=== PATIENT | male | born 1960 | race Caucasian/White ===

== ENCOUNTER 2016-07-28 11:25 | Emergency (ER) | payer BC ==
--- NOTE | 2016-07-28 11:51 | ER Document Report ---
ED Medical Screen (RME) - General Mode of Arrival: Ambulatory Information source: Patient <VIRGILIO EATON - Last Filed: 07/28/16 13:18> <PRAVEEN THORNTON - Last Filed: 07/28/16 14:04> - General Chief Complaint: Cough Stated Complaint: SHORTNESS OF BREATH,COUGH Time Seen by Provider: 07/28/16 11:45 Notes: Patient is a 56-year-old male that presents today with complaints of a cough of a 2 week duration. Patient states he was sent here from urgent care. Patient states he is initially was treated by them 2 weeks ago and put on a Z-Long, had a follow-up appointment today and his chest x-ray worsened". Patient states he has had mild shortness of breath which is exacerbated at night. Patient states it hurts to breathe on the left-hand side. Patient does have an extensive smoking history. (VIRGILIO EATON) - Related Data Allergies/Adverse Reactions: No Known Allergies Allergy (Unverified 01/30/12 16:33) Past Medical History - Past Medical History Cardiac Medical History: Reports: Hx Hypertension - no meds, high BPx1 Denies: Hx Coronary Artery Disease, Hx Heart Attack Pulmonary Medical History: Denies: Hx Asthma, Hx Bronchitis, Hx COPD, Hx Pneumonia Neurological Medical History: Denies: Hx Cerebrovascular Accident, Hx Seizures Renal/ Medical History: Denies: Hx Peritoneal Dialysis Musculoskeltal Medical History: Denies Hx Arthritis Past Surgical History: Denies: Hx Pacemaker - Immunizations Hx Diphtheria, Pertussis, Tetanus Vaccination: Yes <VIRGILIO EATON - Last Filed: 07/28/16 13:18> Review of Systems - Review of Systems Respiratory: See HPI, Cough, Hurts to breathe, Short of breath <VIRGILIO EATON - Last Filed: 07/28/16 13:18> Physical Exam - Respiratory Respiratory status: No respiratory distress Chest status: Nontender Breath sounds: Normal <VIRGILIO EATON - Last Filed: 07/28/16 13:18> Course - Laboratory Result Diagrams: 07/28/16 12:15 07/28/16 12:15 <VIRGILIO EATON - Last Filed: 07/28/16 13:18> - Laboratory Result Diagrams: 07/28/16 12:15 07/28/16 12:15 <PRAVEEN THORNTON - Last Filed: 07/28/16 14:04> - Re-evaluation Re-evalutation: 07/28/16 14:04 I personally performed the services described in the documentation, reviewed and edited the documentation which was dictated to the scribe in my presence, and it accurately records my words and actions. (PRAVEEN THORNTON) - Vital Signs Vital signs: Temp Pulse Resp BP Pulse Ox 98.6 F 77 16 153/86 H 97 07/28/16 11:36 07/28/16 11:36 07/28/16 11:36 07/28/16 11:36 07/28/16 11:36 - Laboratory Laboratory results interpreted by me: 07/28/16 07/28/16 07/28/16 12:15 12:15 12:15 RBC 4.25 L APTT 39.2 H Direct Bilirubin 0.5 H ALT 78 H Albumin 3.4 L Scribe Documentation - Scribe Written by Marcye:: Tanner Mendes, 07/28/2016 1216 acting as scribe for :: Guanaco <VIRGILIO EATON - Last Filed: 07/28/16 13:18>
[2016-07-28] MEDS ORDERED: MORPHINE SULFATE 10 MG/ML INJ IV ONE (11:53)
[2016-07-28] MEDS ORDERED: ONDANSETRON HCL INJ/PF 4 MG/2 ML SDV IV ONE (11:53)
[2016-07-28 12:41] LABS: ABSOLUTE EOSINOPHILS # (AUTO) 0.1 10^3/uL (0.0-0.6); ABSOLUTE LYMPHOCYTES (AUTO) 1.2 10^3/uL (0.5-4.7); ABSOLUTE MONOCYTES (AUTO) 0.7 10^3/uL (0.1-1.4); BASOPHILS % (AUTO) 0.5 % (0-2); EOSINOPHILS % (AUTO) 1.7 % (0-6); HEMATOCRIT 41.4 % (37.9-51.0); HEMOGLOBIN 14.2 g/dL (13.5-17.0); HGB HCT DIFFERENCE 1.2; LYMPHOCYTES % (AUTO) 15.1 % (13-45); MEAN CORPUSCULAR HEMOGLOBIN 33.3 pg (27.0-33.4); MEAN CORPUSCULAR HGB CONC 34.2 g/dL (32.0-36.0); MEAN CORPUSCULAR VOLUME 97 fl (80-97); MONOCYTES % (AUTO) 8.1 % (3-13); RED BLOOD COUNT 4.25 10^6/uL (4.35-5.55); RED CELL DISTRIBUTION WIDTH 13.3 % (11.5-14.0); SEGMENTED NEUTROPHILS % (AUTO) 74.6 % (42-78); WHITE BLOOD COUNT 8.1 10^3/uL (4.0-10.5)
[2016-07-28 12:47] LABS: PARTIAL THROMBOPLASTIN TIME 39.2 SEC (23.5-35.8); PROTHROMBIN TIME 13.7 SEC (11.4-15.4)
[2016-07-28 13:11] LABS: ALANINE AMINOTRANSFERASE 78 U/L (21-72); ALBUMIN 3.4 g/dL (3.5-5.0); ALKALINE PHOSPHATASE 118 U/L (38-126); ANION GAP 11 (5-19); ASPARTATE AMINO TRANSFERASE 45 U/L (17-59); BILIRUBIN,DIRECT 0.5 mg/dL (0.0-0.4); BILIRUBIN,TOTAL 0.7 mg/dL (0.2-1.3); BLOOD UREA NITROGEN 14 mg/dL (7-20); CALCIUM 9.5 mg/dL (8.4-10.2); CARBON DIOXIDE 26 mmol/L (22-30); CHLORIDE 106 mmol/L (98-107); CREATINE KINASE 84 U/L (55-170); CREATININE RESULT 0.68 mg/dL (0.52-1.25); GLUCOSE 88 mg/dL (75-110); POTASSIUM 4.8 mmol/L (3.6-5.0); SODIUM 142.9 mmol/L (137-145); TOTAL PROTEIN 6.8 g/dL (6.3-8.2)
[2016-07-28 13:22] LABS: CREATINE KINASE MB 0.89 ng/mL (<4.55)
[2016-07-28 13:23] LABS: TROPONIN I < 0.012 ng/mL
[2016-07-28] MEDS ORDERED: ALBUTEROL SULFATE 0.083% NEB 2.5 MG/3 ML AMPUL NEB ONE (14:52)
--- NOTE | 2016-07-28 14:53 | ER Document Report ---
ED Respiratory Problem - General Chief Complaint: Cough Stated Complaint: SHORTNESS OF BREATH,COUGH Time Seen by Provider: 07/28/16 11:45 Mode of Arrival: Ambulatory Information source: Patient Notes: 56-year-old smoker male sent by [facility] urgent care due to persistent coughing especially at night and left-sided chest pain. He had episode of hemoptysis this morning and a few days ago. He has had sweats and chills the past week. 8 days ago at urgent care they gave him doxycycline and he's been taking twice a day. - Related Data Allergies/Adverse Reactions: No Known Allergies Allergy (Unverified 01/30/12 16:33) Past Medical History - General Information source: Patient - Social History Smoking Status: Current Every Day Smoker Chew tobacco use (# tins/day): No Frequency of alcohol use: None Drug Abuse: None Lives with: Alone Family History: Reviewed & Not Pertinent Patient has suicidal ideation: No Patient has homicidal ideation: No - Past Medical History Cardiac Medical History: Reports: Hx Hypertension - no meds, high BPx1 Renal/ Medical History: Denies: Hx Peritoneal Dialysis Surgical Hx: Negative - Immunizations Hx Diphtheria, Pertussis, Tetanus Vaccination: Yes Review of Systems - Review of Systems Constitutional: See HPI EENT: No symptoms reported Cardiovascular: No symptoms reported Respiratory: See HPI Gastrointestinal: No symptoms reported Genitourinary: No symptoms reported Male Genitourinary: No symptoms reported Musculoskeletal: No symptoms reported Skin: No symptoms reported Hematologic/Lymphatic: No symptoms reported Neurological/Psychological: No symptoms reported Physical Exam - Vital signs Vitals: Temp Pulse BP Pulse Ox 98.6 F 82 153/86 H 98 07/28/16 11:35 07/28/16 11:35 07/28/16 11:35 07/28/16 11:35 Interpretation: Normal - General General appearance: Appears well, Alert - HEENT Head: Normocephalic, Atraumatic Eyes: Normal Pupils: PERRL Pharynx: Erythema Neck: Supple. No: Lymphadenopathy - Respiratory Respiratory status: No respiratory distress Chest status: Nontender Breath sounds: Normal - bilateral, decreased BS on the left, Rales Chest palpation: Normal - Cardiovascular Rhythm: Regular Heart sounds: Normal auscultation Murmur: No - Abdominal Inspection: Normal Distension: No distension Bowel sounds: Normal Tenderness: Nontender Organomegaly: No organomegaly - Back Back: Normal, Tender - left lower lateral chest wall/ribs - Extremities General upper extremity: Normal inspection, Nontender, Normal color, Normal ROM , Normal temperature General lower extremity: Normal inspection, Nontender, Normal color, Normal ROM , Normal temperature, Normal weight bearing. No: Austin's sign - Neurological Neuro grossly intact: Yes Cognition: Normal Orientation: AAOx4 [place] Coma Scale Eye Opening: Spontaneous [place] Coma Scale Verbal: Oriented Mady Coma Scale Motor: Obeys Commands Oberlin Coma Scale Total: 15 Speech: Normal Motor strength normal: LUE, RUE, LLE, RLE Sensory: Normal - Psychological Associated symptoms: Normal affect, Normal mood - Skin Skin Temperature: Warm Skin Moisture: Dry Skin Color: Normal Course - Re-evaluation Re-evalutation: 07/28/16 15:[address] Scott who will see the patient this week, he recommended doxycycline for a total of 2 weeks, he wants the patient to obtain a sputum culture. I spoke with Dr. Willis's office and they will help the patient get a [facility] referral. I will give the patient an nebulizer and albuterol which helped the sensation of shortness of breath. He also wanted some pain medication for the left lower back pain that began after sneezing. - Vital Signs Vital signs: Temp Pulse Resp BP Pulse Ox 98.5 F 77 21 H 137/80 H 98 07/28/16 14:56 07/28/16 11:36 07/28/16 15:01 07/28/16 14:54 07/28/16 15:01 - Laboratory Result Diagrams: 07/28/16 12:15 07/28/16 12:15 Laboratory results interpreted by me: 07/28/16 07/28/16 07/28/16 12:15 12:15 12:15 RBC 4.25 L APTT 39.2 H Direct Bilirubin 0.5 H ALT 78 H Albumin 3.4 L Discharge - Discharge Clinical Impression: cough, hemoptysis, left lower thoracic back pain, atelectasis verus infiltrate LLL, pneumocystocele-right, Skin cancer Condition: Good Disposition: HOME, SELF-CARE Instructions: Stop Smoking ([facility]), Doxycycline ([facility]), Oral Narcotic Medication ( [facility]), Upper Back Strain ([facility]), Pneumonia ([facility]) Additional Instructions: Call tomorrow for an appointment this week with the shaft repairer Dr. Sabi Celestin office is supposed to be helping U with the referral to his office from [facility]- Call his office for appointment this week Stop smoking Use the nebulizer with bronchodilator albuterol Obtain a sputum culture and return it with the outpatient order Return to the emergency room for increased shortness of breath, fever, or any concerns [facility] Doctor in [place], [place] Address: [address] [place] [id number] Hours: 8AM5PM Please complete the patient satisfaction survey if you get one, and return it.. If you do not receive a survey, then you can go to the [facility] website, [email or web address] and place your comments about your very good care. Thank you very much. It was a pleasure being your medical provider today. Prescriptions: Albuterol Sulfate [Ventolin 0.083% Neb 2.5 mg/3 mL Ampul] 2.5 mg NEB Q3HP PRN # 25 vial PRN Reason: Doxycycline Hyclate 100 mg PO DAILY #14 capsule Nebulizer [Nebulizer Machine] 1 each MC ASDIR PRN #1 kit PRN Reason: Oxycodone HCl/Acetaminophen [Percocet 5-325 mg Tablet] 1 - 2 tab PO ASDIR PRN # 15 tablet PRN Reason: Forms: Follow-Up Laboratory Testing, Return to Work Referrals: JALIL ORTEGA MD [ACTIVE STAFF] - Follow up tomorrow
[2016-07-28 16:05] VITALS: BP 137/80
--- NOTE | 2016-07-28 20:35 | EKG REPORT ---
SEVERITY:- ABNORMAL ECG - SINUS RHYTHM : Confirmed by: Heather Alarcon 28-Jul-2016 20:34:49
== END 2016-07-28 16:15 | disposition home or self-care (01) ==
LOC: ER 11:25
DX: R05 Cough (principal); R06.02 Shortness of breath; R04.2 Hemoptysis; C44.90 Unspecified malignant neoplasm of skin, unspecified; M54.6 Pain in thoracic spine; F17.200 Nicotine dependence, unspecified, uncomplicated; I10 Essential (primary) hypertension
CPT/HCPCS: 93005; 94640; 99284; 96374; 96375; 36415; 87070; 87205; 82553; 82550; 85025; 85610; 85730; 80053; 84484; 71275; 93010; J2270; J2405